=== PATIENT | female | born 1995 | race Two or more races ===

== ENCOUNTER 2023-12-10 08:21 | Emergency (ER) | payer MEDICAID ==
[~2023-12-10] VITALS: Ht 167.6 cm; Wt 122.7 kg
[2023-12-10 09:20] LABS: Urine Bacteria NONE SEEN /hpf (None Seen); Urine Blood Negative /uL (Negative); Urine Clarity HAZY (Clear); Urine Color Yellow (Yellow); Urine Protein, UAD Negative (Negative); Urine Specific Gravity 1.016 (1.001-1.035); Urine Urobilinogen Normal (Negative); Urine WBC 1 /hpf (0 - 5); Urine pH 6.5 (5.0-8.0)
[2023-12-10] MEDS ORDERED: SODIUM CHLORIDE 0.9% 1,000 ML IV ONE (12:15)
[2023-12-10] MEDS ORDERED: PROCHLORPERAZINE MALEATE 10 MG TAB PO ONE (12:15)
[2023-12-10] MEDS ORDERED: MAALOX PLUS or MAALOX 30 ML PO ONE (12:15)
[2023-12-10] MEDS ORDERED: DONNATAL 5ml ORAL Elix (BELLADONNA ALK-PHENOBARB) PO ONE (12:15)
[2023-12-10 13:03] LABS: Basophils # (auto) 0 10 ^3/uL (0-0.2); Basophils % (auto) 0.5 % (0.0-2.0); Eosinophils # (auto) 0.3 10 ^3/uL (0-0.8); Eosinophils % (auto) 4.2 % (0.0-7.0); Hematocrit 41.6 % (36.0-46.0); Hemoglobin 13.9 g/dL (12.2-16.2); Lymphocytes # (auto) 2.4 10 ^3/uL (0.4-5.4); Lymphocytes % (auto) 39.5 % (10.0-50.0); Mean Corpuscular Hemoglobin 27.4 pg (28.0-32.0); Mean Corpuscular Hgb Conc. 33.4 g/dL (32.0-36.0); Monocytes # (auto) 0.4 10 ^3/uL (0-1.3); Neutrophils % (auto) 49.8 % (37.0-80.0); Nucleated Red Blood Cells % 0.1 %; Red Blood Cells 5.06 10^6/uL (4.0-5.20); Red Cell Distribution Width 13.7 % (11.8-14.3); White Blood Cell 6.1 10^3/uL (4.4-10.8)
[2023-12-10 13:18] LABS: Alanine Aminotransferase 45 U/L (7-40); Albumin 4.3 g/dL (3.2-4.8); Alkaline Phosphatase 87 U/L (46-116); Anion Gap 8 (5-15); Aspartate Aminotransferase 40 U/L (13-40); BUN/Creatinine Ratio 13.8 (10.0-20.0); Bilirubin, Total 0.3 mg/dL (0.2-1.0); Blood Urea Nitrogen 9 mg/dL (9-23); Calcium 9.4 mg/dL (8.7-10.4); Carbon Dioxide 25 mmol/L (20-30); Chloride 106 mmol/L (98-107); Glucose 98 mg/dL (74-106); Lipase 73 U/L (12-53); Magnesium 1.7 mg/dL (1.6-2.6); Potassium 3.9 mmol/L (3.5-5.1); Sodium 139 mmol/L (136-145); Total Protein 7.5 g/dL (5.7-8.2)
[2023-12-10 13:22] VITALS: BP 131/97; PULSE 92; RESP 18; TEMP 98.6; O2SAT 97
[2023-12-10] MEDS ORDERED: IOHEXOL 300 MG/ML 100ML BOTTLE IJ ONE (13:45)
[2023-12-10] MEDS ORDERED: LACT1CAP2 PO (16:57)
[2023-12-10] MEDS ORDERED: OME20GT PO (16:57)
[2023-12-10] MEDS ORDERED: NITR-87 PO (16:57)
== END 2023-12-10 17:23 | disposition home or self-care (01) ==
LOC: ER 08:21
DX: K29.70 Gastritis, unspecified, without bleeding (principal); J00 Acute nasopharyngitis [common cold]; K62.89 Other specified diseases of anus and rectum; N30.90 Cystitis, unspecified without hematuria; I10 Essential (primary) hypertension
CPT/HCPCS: 36415; 71046; 74177; 80053; 81001; 81025; 83690; 83735; 85025; 96360; 96361; 99285; J7030; Q0164; Q9967

== ENCOUNTER 2024-10-27 04:54 | Emergency (ER) | payer MEDICAID ==
[~2024-10-27] VITALS: Ht 170.2 cm; Wt 122.2 kg
[~2024-10-27 04:54] MED LIST: LACT1CAP2 PO; NITR-87 PO; OME20GT PO
[2024-10-27 05:43] LABS: Basophils # (auto) 0 10 ^3/uL (0-0.2); Basophils % (auto) 0.2 % (0.0-2.0)
[2024-10-27 05:46] LABS: Eosinophils # (auto) 0 10 ^3/uL (0-0.8); Eosinophils % (auto) 0.2 % (0.0-7.0); Hematocrit 52.5 % (36.0-46.0); Hemoglobin 18.2 g/dL (12.2-16.2); Lymphocytes # (auto) 2.4 10 ^3/uL (0.4-5.4); Lymphocytes % (auto) 16.5 % (10.0-50.0); Mean Corpuscular Hemoglobin 27.9 pg (28.0-32.0); Mean Corpuscular Hgb Conc. 34.7 g/dL (32.0-36.0); Mean Corpuscular Volume 80.2 fL (80.0-100.0); Monocytes # (auto) 0.7 10 ^3/uL (0-1.3); Monocytes % (auto) 4.7 % (0.0-12.0); Neutrophils # (auto) 11.5 10 ^3/uL (1.6-8.6); Neutrophils % (auto) 78.4 % (37.0-80.0); Nucleated Red Blood Cells % 0.3 %; Platelet Count (auto) 523 10^3/uL (140-450); Red Blood Cells 6.54 10^6/uL (4.0-5.20); White Blood Cell 14.7 10^3/uL (4.4-10.8)
[2024-10-27] MEDS: SODIUM CHLORIDE 0.9% 1,000 ML IV ONE ×2 (05:50→06:31)
[2024-10-27] MEDS: diphenhdrAMINE HCL 50 MG/1 ML VL IV ONE (05:52)
[2024-10-27 06:00] LABS: Chloride 103 mmol/L (98-107); Potassium 3.5 mmol/L (3.5-5.1); Sodium 138 mmol/L (136-145)
[2024-10-27 06:01] LABS: Anion Gap 10 (5-15); Carbon Dioxide 25 mmol/L (20-31)
[2024-10-27 06:06] LABS: Blood Urea Nitrogen 12 mg/dL (9-23)
[2024-10-27 06:19] LABS: Calcium 10.5 mg/dL (8.7-10.4); Glucose 132 mg/dL (74-106)
--- NOTE | 2024-10-27 06:26 | DVH ---
CHEST RADIOGRAPH Indication: shortness of breath Technique: Single frontal view of the chest was obtained COMPARISON: None FINDINGS: Lines and Tubes: None Lungs: Clear Pleura: No effusion. No pneumothorax. Cardiomediastinal contours: Unremarkable Bones: Unremarkable IMPRESSION: No acute disease.
--- NOTE | 2024-10-27 07:15 | ED.PDOC ---
HPI Allergic reaction HPI Comments 29 year old female presents to the ED with chief complaint of allergic reaction. Patient reports that she had woken up this morning with a generalized rash to her whole body. Patient relays that since receiving treatment in the ED, her allergic reaction has since resolved. Patient states she is not sure what she may have reacted to as she has no known allergies. Patient notes she is currently taking Wegovy. Patient denies any N/V, dizziness, headache, SOB, or throat swelling. Chief Complaint: Allergic Reaction Time Seen by MD: 07:11 Primary Care Provider: IGNACIA Reviewed Notes: Nurses Notes, Medications, Allergies Allergies: Coded Allergies: NO KNOWN ALLERGIES (Unverified , 12/10/23) Home Meds Active Scripts Diphenhydramine Hcl (Benadryl Allergy) 25 Mg Cap, 25 MG PO TID for 5 Days, #15 CAP Prov:MIKEY CHRISTENSEN MD 10/27/24 Prednisone (Prednisone) 20 Mg Tab, 20 MG PO BID for 5 Days, #10 MG Prov:MIKEY CHRISTENSEN MD 10/27/24 Lactobacillus Casei-Folic Acid ([facility] Rx 60-1.25 mg) 1 Cap Cap, 1 CAP PO BID for 30 Days, #60 CAP Prov:MIKEY CHRISTENSEN MD 12/10/23 Nitrofurantoin Monohydrate Mac (Macrobid) 100 Mg Cap, 100 MG PO BID for 5 Days, #10 CAP Prov:MIKEY CHRISTENSEN MD 12/10/23 Omeprazole (Prilosec Susp (For Gt)) 20 Mg Ss, 20 MG PO BID for 15 Days, #30 TAB Prov:MIKEY CHRISTENSEN MD 12/10/23 Information Source: Patient Mode of Arrival: Ambulatory Severity: Moderate Rash: Moderate SOB: None Difficulty swallowing: None Pruritus: None Timing: Hours Duration: Since onset Prehospital treatment: None Location: Generalized Exposed to: Unknown Developed: Generalized erythema, Rash History of: None Modyifying Factors: None Associated Sign and Symptoms: None Past Medical History PAST MEDICAL HISTORY: Denies Surgical History: Denies all surgeries JTAC History: No Pertinent JTAC History Family History Family History: Reviewed,noncontributory to illness, Unknown Social History Smoker: Non-Smoker Alcohol: Denies ETOH Use Drugs: Denies Drug Use Lives In: Home Constitutional: denies: chills, diaphoresis, fatigue, fever, malaise, sweats, weakness, others EENTM: denies: blurred vision, double vision, ear bleeding, ear discharge, ear drainage, ear pain, ear ringing, eye pain, eye redness, hearing loss, mouth pain, mouth swelling, nasal discharge, nose bleeding, nose congestion, nose pa in, photophobia, tearing, throat pain, throat swelling, voice changes, others Respiratory: denies: cough, hemoptysis, orthopnea, SOB at rest, shortness of breath, SOB with excertion, stridor, wheezing, others Cardiovascular: denies: chest pain, dizzy spells, diaphoresis, Dyspnea on exertion, edema, irregular heart beat, left arm pain, lightheadedness, palpitations, PND, syncope, others Gastrointestinal: denies: abdomen distended, abdominal pain, blood streaked bowels, constipated, diarrhea, dysphagia, difficulty swallowing, hematemesis, melena, nausea, poor appetite, poor fluid intake, rectal bleeding, rectal pain, vomiting, others Genitourinary: denies: abnormal vagina bleeding, burning, dyspareunia, dysuria, flank pain, frequency, hematuria, incontinence, pain, , vagina discharge, urgency, others Neurological: denies: dizziness, fainting, headache, left sided numbness, left sided weakness, numbness, paresthesia, pre-existing deficit, right sided numbness, right sided weakness, seizure, speech problems, tingling, tremors, weakness, others Musculoskeletal: denies: back pain, gout, joint pain, joint swelling, muscle pain, muscle stiffness, neck pain, others Integumetry: reports: rash; denies: bruises, change in color, change in hair/nails, dryness, laceration, lesions, lumps, wounds, others Allergic/Immunocompromised: reports: Hives; denies: Difficulty Healing, Frequent Infections, Itching, others Hematologic/Lymphatic: denies: anemia, blood clots, easy bleeding, easy bruising, swollen glands, others Endocrine: denies: excessive hunger, excessive sweating, excessive thirst, excessive urination, flushing, intolerance to cold, intolerance to heat, unexplained weight gain, unexplained weight loss, others Psychiatric: denies: anxiety, bipolar disorder, depression, hopeless, panic disorder, schizophrenia, sleepless, suicidal, others All Other Systems: Reviewed and Negative Physical Exam General Appearance: Mild Distress, Obese HEENT: Normal ENT Inspection, PERRL/EOMI Neck: Full Range of Motion, Non-Tender, Normal, Normal Inspection Respiratory: Chest Non-Tender, Lungs Clear, No Accessory Muscle Use, No Respiratory Distress, Normal Breath Sounds Cardiovascular: No Edema, No JVD, No Murmur, No Gallop, Normal Peripheral P ulses, Regular Rate/Rhythm Breast Exam: Deferred Gastrointestinal: No Organomegaly, Non Tender, No Pulsatile Mass, Normal Bowel Sounds, Soft Genitalia: Deferred Pelvic: Deferred Rectal: Deferred Extremities: No calf tenderness, Normal capillary refill, Normal inspection, Normal range of motion, Non-tender, No pedal edema Musculoskeletal : Apperance: Normal Neurologic: Alert, continuous process machine operator II-XII nml as Tested, No Motor Deficits, Normal Affect, Normal Mood, No Sensory Deficits Cerebellar Function: Normal Reflexes: Normal Skin: Dry, Normal Color, Rash (Patient with diffuse urticarial skin eruption), Warm Peripheral Pulses: 1+ carotid (R), 1+ carotid (L) Lymphatic: No Adenopathy Was a procedure done? Was a procedure done?: No Differential diagnosis (all) Differential Diagnosis: Urticaria X-Ray, Labs, Meds, VS Vital Signs Date Time Temp Pulse Resp B/P (MAP) Pulse Ox O2 Delivery O2 Flow Rate FiO2 10/27/24 05:24 162 10/27/24 05:05 20 96 Room Air* 0 21 10/27/24 05:05 97.6 156 20 123/78 (93) 96 Lab Test 10/27/24 05:29 Range/Units White Blood Count 14.7 H 4.4-10.8 10^3/uL Red Blood Count 6.54 H 4.0-5.20 10^6/uL Hemoglobin 18.2 H 12.2-16.2 g/dL Hematocrit 52.5 H 36.0-46.0 % Mean Corpuscular Volume 80.2 80.0-100.0 fL Mean Corpuscular Hemoglobin 27.9 L 28.0-32.0 pg Mean Corpuscular Hemoglobin Concent 34.7 32.0-36.0 g/dL Red Cell Distribution Width 14.0 11.8-14.3 % Platelet Count 523 H 140-450 10^3/uL Mean Platelet Volume 7.0 6.9-10.8 fL Neutrophils (%) (Auto) 78.4 37.0-80.0 % Lymphocytes (%) (Auto) 16.5 10.0-50.0 % Monocytes (%) (Auto) 4.7 0.0-12.0 % Eosinophils (%) (Auto) 0.2 0.0-7.0 % Basophils (%) (Auto) 0.2 0.0-2.0 % Neutrophils # (Auto) 11.5 H 1.6-8.6 10 ^3/uL Lymphocytes # (Auto) 2.4 0.4-5.4 10 ^3/uL Monocytes # (Auto) 0.7 0-1.3 10 ^3/uL Eosinophils # (Auto) 0 0-0.8 10 ^3/uL Basophils # (Auto) 0 0-0.2 10 ^3/uL Nucleated Red Blood Cells 0.3 % Sodium Level 138 136-145 mmol/L Potassium Level 3.5 3.5-5.1 mmol/L Chloride Level 103 98-107 mmol/L Carbon Dioxide Level 25 20-31 mmol/L Anion Gap 10 5-15 Blood Urea Nitrogen 12 9-23 mg/dL Creatinine 1.33 H 0.550-1.02 mg/dL Glomerular Filtration Rate Calc 56 >90 mL/min BUN/Creatinine Ratio 9.0 L 10.0-20.0 Serum Glucose 132 H 74-106 mg/dL Calcium Level 10.5 H 8.7-10.4 mg/dL Troponin I High Sensitivity < 3 L </=34 ng/L Current Medications Medications (Trade) Dose Ordered Sig/Priscilla Route Start Time Stop Time Status Last Admin Sodium Chloride 1,000 ml @ 1,000 mls/hr Q1H ONCE IV 10/27/24 05:15 10/27/24 06:14 DC 10/27/24 05:50 Sodium Chloride 1,000 ml @ 1,000 mls/hr Q1H ONCE IV 10/27/24 05:15 10/27/24 06:14 MI 10/27/24 06:31 Diphenhydramine HCl (Benadryl Injection) 50 mg ONCE ONCE IV 10/27/24 05:15 10/27/24 05:16 MI 10/27/24 05:52 Chest XR: FINDINGS: Lines and Tubes: None Lungs: Clear Pleura: No effusion. No pneumothorax. Cardiomediastinal contours: Unremarkable Bones: Unremarkable IMPRESSION: No acute disease. X-Ray, Labs, Meds, VS Comment Course in the emergency department eventful patient came in complaining of diffuse rash with itching and burning She received treatment earlier and now she is clear of rash The chest x-[place] fine CBC [id number] with a 78.4% neutrophils H and H 18 and 52 Troponin three GFR 56 Blood sugar 132 Patient has been treated and observed and she will be discharged home to follow up with her PCP Images Reviewed?: Images reviewed and evaluated by me Time of 1ST Reevaluation: 08:11 Reevaluation 1ST: Unchanged Time of 2ND Reevaluation: 07:52 Reevaluation 2ND: Improved Consultation: PCP Patient Education/Counseling: Diagnosis, Treatment, Prognosis, Need For Follow Up Family Education/Counseling: Diagnosis, Treatment, Prognosis, Need For Follow Up, No Family Present Departure 1 Departure Time of Disposition: 07:54 Impression: Primary Impression: Urticaria Disposition: 01 HOME / SELF CARE / HOMELESS Condition: Fair Additional Instructions: Need to put herself on a clear to full liquid diet for the next 48 hours Push fluids Follow up with your PCP e-Prescriptions Diphenhydramine Hcl (Benadryl Allergy) 25 Mg Cap 25 MG PO TID for 5 Days, #15 CAP Prov: MIKEY CHRISTENSEN MD 10/27/24 Prednisone (Prednisone) 20 Mg Tab 20 MG PO BID for 5 Days, #10 MG Prov: MIKEY CHRISTENSEN MD 10/27/24 Discharged With: Self Critical Care Note Critical Care Time?: No Stability Stability form required: No Heart Score Heart Score: Heart Score Response (Comments) Value History N/A 0 EKG N/A 0 Age <45 0 Risk Factors No known risk factors 0 Troponin N/A 0 Total 0 I personally scribed for MIKEY CHRISTENSEN MD ([email or web address]) on 10/27/24 at 07:15. Electronically submitted by Carol Prater ([email or web address]). I personally scribed for MIKEY CHRISTENSEN MD ([email or web address]) on 10/27/24 at 08:00. Electronically submitted by Jarvis Adame ([email or web address]). MIKEY CHRISTENSEN MD Oct 27, 2024 07:15
[2024-10-27] MEDS ORDERED: PRED20TA2 PO (07:59)
[2024-10-27] MEDS ORDERED: DIPH25CA66 PO (07:59)
[2024-10-27 08:01] VITALS: BP 100/64; PULSE 118; RESP 18; TEMP 98.8; O2SAT 95
--- NOTE | 2024-10-27 10:52 | ECG ---
[facility] Test Date: 2024-10-27 Test Time: 05:24:11 Pat Name: TIFFANY SALAZAR Department: ER Room: Gender: F Chief Ultrasound Technologist: TANIYA : 1995 Requested By: GEM HELM Order Number: [id number] Reading MD: Sukhi Arguelles Measurements Intervals [place] Rate: 162 P: 53 NV: 89 QRS: 52 QRSD: 72 T: -35 QT: 274 QTc: 450 Interpretive Statements Sinus tachycardia Ventricular tachycardia, unsustained Aberrant complex Borderline repolarization abnormality Baseline wander in lead(s) I,II,III,aVR,aVF,V1,V2,V3,V4 Electronically Signed On 10-27-2024 16:32:31 PST by Sukhi Arguelles Please click the below link to view image of tracing.
== END 2024-10-27 08:55 | disposition home or self-care (01) ==
LOC: ER 04:54
DX: L50.9 Urticaria, unspecified (principal); Z79.52 Long term (current) use of systemic steroids
CPT/HCPCS: 36415; 71045; 80048; 84484; 85025; 93005; 96361; 96374; 99285; J1200; J7030